=== PATIENT | female | born 1990 | race Caucasian/White ===

== ENCOUNTER 2017-02-17 18:40 | Emergency (ER) | payer BC ==
[2017-02-17] MEDS ORDERED: methylPREDNISolone Sodium Succinate 125 MG/2 ML SDV IVPUSH ONE (18:50)
[2017-02-17] MEDS ORDERED: diphenhydrAMINE 50 MG/ML SDV IVPUSH ONE (18:50)
[2017-02-17] MEDS ORDERED: Sodium Chloride 0.9% 1,000 ML IV SCH (19:00)
--- NOTE | 2017-02-17 19:40 | EDM.PDOC ---
ED HPI GENERAL MEDICAL PROBLEM - General Chief Complaint: Allergic Reaction Stated Complaint: BEE STING Time Seen by Provider: 02/17/17 18:49 Source of Information: Reports: Patient History Limitations: Reports: No Limitations - History of Present Illness INITIAL COMMENTS - FREE TEXT/NARRATIVE: 26 yo female presents after being stung in the right palm with bee. developed full body redness and hives. very anxious. denies headache, breathing difficulty, oral edema, or wheezing. - Related Data Allergies Allergy/AdvReac Type Severity Reaction Status Date / Time No Known Allergies Allergy Verified 02/17/17 18:52 Home Meds: Home Meds NK [No Known Home Meds] 02/17/17 [History] Past Medical History - Past Health History Medical/Surgical History: Denies Medical/Surgical History Social & Family History - Tobacco Use Smoking Status *Q: Current Every Day Smoker Years of Tobacco use: 6 Packs/Tins Daily: 0.5 ED ROS ALLERGIC REACTION - Review of Systems Review Of Systems: See Below Constitutional: Denies: Fever, Fatigue Respiratory: Denies: Shortness of Breath, Wheezing Cardiovascular: Denies: Chest Pain Skin: Reports: Rash, Erythema, Urticaria Psychiatric: Reports: Anxiety ED EXAM GENERAL NO PERIP PULSE - Physical Exam Exam: See Below Exam Limited By: No Limitations General Appearance: Alert, WD/WN, Mild Distress Neck: Normal Inspection, Supple, Non-Tender, Full Range of Motion. No: Lymphadenopathy (R), Lymphadenopathy (L) Respiratory/Chest: No Respiratory Distress, Lungs Clear, Normal Breath Sounds, No Accessory Muscle Use, Chest Non-Tender Cardiovascular: Normal Peripheral Pulses, No Murmur, Tachycardia GI/Abdominal: Soft, Non-Tender Skin Exam: Erythema, Increased Warmth, Other (uticaria) Course - Vital Signs Last Recorded V/S: Last Vital Signs Temp 36.3 C 02/17/17 18:57 Pulse 98 02/17/17 19:42 Resp 18 02/17/17 19:42 BP 119/66 02/17/17 19:42 Pulse Ox 96 02/17/17 19:42 - Orders/Labs/Meds Orders: Active Orders 24 hr Category Date Time Status Sodium Chloride 0.9% [Normal Saline] 1,000 ml Med 02/17/17 19:00 Active IV ASDIRECTED Medication Orders Sodium Chloride (Normal Saline) 1,000 mls @ 999 mls/hr IV ASDIRECTED JAZMÍN Last Admin: 02/17/17 19:08 Dose: 999 mls/hr Meds: Medications Generic Name Dose Route Start Last Admin Trade Name Lexus PRN Reason Stop Dose Admin Sodium Chloride 1,000 mls @ 999 mls/hr 02/17/17 19:00 02/17/17 19:08 Normal Saline IV 999 mls/hr ASDIRECTED JAZMÍN Administration Discontinued Medications Generic Name Dose Route Start Last Admin Trade Name Lexus PRN Reason Stop Dose Admin Diphenhydramine HCl 50 mg 02/17/17 18:50 02/17/17 18:50 Benadryl IVPUSH 02/17/17 18:51 50 mg ONETIME ONE Administration Methylprednisolone Sodium Succinate 125 mg 02/17/17 18:50 02/17/17 18:50 Solu-Medrol IVPUSH 02/17/17 18:51 125 mg ONETIME ONE Administration Departure - Departure Time of Disposition: 20:20 Disposition: Home, Self-Care 01 Condition: Good Clinical Impression: Bee sting reaction Qualifiers: Encounter type: initial encounter Injury intent: accidental or unintentional Qualified Code(s): T63.441A - Toxic effect of venom of bees, accidental ( unintentional), initial encounter Allergic reaction Qualifiers: Encounter type: initial encounter Qualified Code(s): T78.40XA - Allergy, unspecified, initial encounter - Discharge Information Forms: ED Department Discharge Additional Instructions: Benadryl 25-50 mg as need for itching and hives Increase fluid intake with goal of 2 liters perday Epi auto-inject pen 2 pack use if you get stung again and your tongue or throat swells - My Orders Last 24 Hours: My Active Orders 02/17/17 19:00 Sodium Chloride 0.9% [Normal Saline] 1,000 ml IV ASDIRECTED - Assessment/Plan Last 24 Hours: My Active Orders 02/17/17 19:00 Sodium Chloride 0.9% [Normal Saline] 1,000 ml IV ASDIRECTED
[2017-02-17 19:43] VITALS: BP 119/66
== END 2017-02-17 21:27 | disposition home or self-care (01) ==
LOC: JP.ED 18:40
DX: T63.441A Toxic effect of venom of bees, accidental (unintentional), initial encounter (principal); F17.210 Nicotine dependence, cigarettes, uncomplicated; W57.XXXA Bitten or stung by nonvenomous insect and other nonvenomous arthropods, initial encounter
CPT/HCPCS: 96361; 96374; 96375; 99283; J1200; J2930; J7040